=== PATIENT | male | born 1955 | race Caucasian/White ===

== ENCOUNTER 2022-10-28 14:37 | Observation (INO) | payer MEDICARE, SELFPAY ==
[2022-10-28] VITALS (7 sets, daily range): BP systolic 109–132; BP diastolic 60–72; PULSE 67–93; RESP 18–21; TEMP 36.2–36.6; O2SAT 97–100; BMI 34.1; BMI 33.9
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
--- NOTE | ~2022-10-28 | XR_ITS ---
EXAMINATION: XR chest 2V DATE: 10/28/2022 15:35 INDICATION: Transient alteration of awareness TECHNIQUE: Frontal and lateral views of the chest are obtained COMPARISON: None available FINDINGS: There are minimal airspace opacities of the lung bases. No pleural effusion or pneumothorax . The cardiomediastinal silhouette is normal. There is mild thoracic spondylosis. IMPRESSION: 1. No acute cardiopulmonary abnormality. Reviewed, dictated and finalized at location [facility]. ERCRAFT NURSE
--- NOTE | 2022-10-28 14:43 | ECG_ITS ---
Measurements Intervals Scribner Rate: 96 P: 33 VT: 165 QRS: 13 QRSD: 87 T: 75 QT: 361 QTc: 458 Interpretive Statements SINUS RHYTHM MINIMAL Q WAVES- HIGH LATERAL LEADS ANTEROSEPTAL INFARCT, AGE INDETERMINATE BASELINE ARTIFACT- I, II, AVR, AVL, AVF ABNORMAL ECG NO PREVIOUS ECG AVAILABLE FOR COMPARISON Electronically Signed On 10-28-2022 14:50:57 ORDNANCE ENGINEERING TECHNICIAN by Andrey Luis D.O.
[2022-10-28 14:55] LABS: Glucose Point of Care 50 mg/dl (65-105)
[2022-10-28] MEDS: DEXTROSE 50% 25 GM/50 ML SYRINGE IV PUSH (15:00)
[2022-10-28 15:23] LABS: Glucose Point of Care 142 mg/dl (65-105)
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
[2022-10-28 15:36] LABS: Basophils Percent Auto 0.5 % (0.2-1.2); Eosinophils Absolute Auto 0.3 K/mm3 (0-0.3); Eosinophils Percent Auto 2.9 % (0-4.4); Hematocrit 41.7 % (42.0-52.0); Hemoglobin 13.4 g/dL (14.0-18.0); Immature Granulocyte Absolute 0.03 K/mm3 (0.00-0.031); Immature Granulocyte Percent A 0.3 % (0-0.5); Lymphocytes Absolute Auto 3.39 K/mm3 (0.9-3.2); Lymphocytes Percent Auto 39.1 % (18.3-44.2); Mean Corpuscular HGB Conc 32.1 g/dl (32-36); Mean Corpuscular Hemoglobin 29.3 pg (26-34); Mean Platelet Volume 12.3 fl (7.4-10.4); Monocytes Absolute Auto 0.9 K/mm3 (0.1-0.6); Monocytes Percent Auto 9.8 % (2.6-8.5); Neutrophils Absolute Auto 4.1 K/mm3 (1.3-6.7); Neutrophils Percent Auto 47.4 % (45.5-73.1); Platelet Count Result 241 k/mm3 (150-375); Red Blood Count 4.58 M/mm3 (4.6-6.20); Red Cell Distribution Width 14.9 % (11.5-14.5); White Blood Count 8.7 K/mm3 (4.5-10.0)
[2022-10-28 15:55] LABS: Glucose Point of Care 95 mg/dl (65-105)
[2022-10-28 15:55] LABS: Magnesium 1.8 mg/dL (1.6-2.3)
[2022-10-28 15:57] LABS: Bacteria Urine Trace /hpf; RBC Urine 0-2 /hpf (0-2); WBC Urine 0-3 /hpf
[2022-10-28 16:02] LABS: Troponin I 0.021 ng/mL (0.000-0.034)
[2022-10-28 16:02] LABS: Appearance Urine Clear (Clear); Bilirubin Urine Negative (Negative); Blood Urine Negative (Negative); Color Urine Yellow (Yellow); Glucose Urine UA Trace mg/dL (Negative); Ketones Urine Negative (Negative); Leukocyte Esterase Ur Negative LEU/UL (Negative); Nitrate Urine Negative (Negative); Protein Urine 2+ mg/dL (Negative); Specific Grav Ur >= 1.030 (1.001-1.035); pH Urine 5.5 (5.0-9.0)
[2022-10-28 16:03] LABS: Add Urine Microscopic? YES
[2022-10-28 16:07] LABS: Prothrombin Time 13.2 Seconds (11.1-14.7)
[2022-10-28 16:08] LABS: Partial Thromboplastin Time 25.6 SECONDS (22.3-36.8)
[2022-10-28 16:11] LABS: Alanine Aminotransferase 19 U/L (6-50); Albumin Level 4.2 g/dL (3.5-5.1); Alkaline Phosphatase 29 U/L (38-126); Anion Gap 12 mmol/L (8-16); Aspartate Amino Transferase 20 U/L (17-59); Bilirubin,Total 0.5 mg/dL (0.2-1.3); Blood Urea Nitrogen 14 mg/dL (9-20); Calcium 8.4 mg/dL (8.4-10.2); Carbon Dioxide 21 mmol/L (22-30); Chloride 106 mmol/L (98-107); Estimated Glomerular Filt Rate > 60; Glucose 44 mg/dL (65-110); Potassium 3.7 mmol/L (3.4-5.0); Sodium 139 mmol/L (137-145)
[2022-10-28 16:29] LABS: Influenza A QL RT-PCR Negative (Negative); Influenza B QL RT-PCR Negative (Negative); SARS-CoV-2 RNA PCR Negative
[2022-10-28 16:35] LABS: Amphetamine Screen Urine Negative (Negative); Barbiturate Screen Urine Negative (Negative); Benzodiazepines Screen Urine Negative (Negative); Cannabinoid Screen Urine Negative (Negative); Cocaine Screen Urine Negative (Negative); Methadone Screen Urine Negative (Negative); Opiate Screen Urine Negative (Negative); Phencyclidine Screen Urine Negative (Negative)
[2022-10-28 16:41] LABS: Glucose Point of Care 94 mg/dl (65-105)
[2022-10-28] MEDS: DEXTROSE 5%/0.45% SOD CHL 1,000 ML 100 ML IV CONT (17:21)
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
--- NOTE | 2022-10-28 19:10 | PC.NURSE ---
Assumed pt care from Batsheva Herrera RN
[2022-10-28 20:24] LABS: Glucose Point of Care 188 mg/dl (65-105)
[2022-10-28 20:46] LABS: Glucose Point of Care 205 mg/dl (65-105)
--- NOTE | 2022-10-28 20:48 | ADMGEN ---
This patient, Yassine Ji, was admitted to IMU Room 205-2033. Patient/family oriented to hospital policies and general routines including ID bracelet, bed and alarms, visiting hours, pain management, procedures, bathroom and other care routines, personal items, smoking policy, room service/diet, and visiting hours. Information on how to activate the Rapid Response Team has been discussed. Patient/Family are encouraged to report perceived risks to care and to ask questions if they do not understand what they are told or what they should do.
[2022-10-28] MEDS: SACUBITRIL/VALSARTAN 24-26 MG TABLET 1 TAB PO (22:38)
[2022-10-28 23:18] LABS: Glucose Point of Care 153 mg/dl (65-105)
[2022-10-29] VITALS (10 sets, daily range): BP systolic 106; BP diastolic 60–66; PULSE 60–69; RESP 20–24; TEMP 36.2–36.7; O2SAT 96–98
--- NOTE | 2022-10-29 | ECHO_ITS ---
Patient Info Name: Yassine Ji Age: 67 years : 1955 Gender: Male Ht: 70 in Wt: 236 lbs BSA: 2.34 m2 HR: 62 bpm BP: 106 / 60 mmHg Heart Rhythm: Sinus Rhythm Technical Quality: Good Exam Date: 10/29/2022 6:52 AM Exam Location: [facility] Patient Status: Inpatient Admit Date: 10/28/2022 Staff Ordering Physician: Mariela Galindo NP Psychiatric Registered Nurse: Judi Mayer RDCS Attending Provider: Desmond Vincent MD Referring Physician: Josie JORDAN; Exam Type: CA echo doppler color flow Study Info Indications I51.7 - Cardiomegaly Complete two-dimensional, color flow and Doppler transthoracic echocardiogram is performed. Summary 1. Complete two-dimensional, color flow and Doppler transthoracic echocardiogram is performed. 2. Left ventricular chamber dimension is normal. 3. Left ventricular systolic function is normal, estimated at 50-55%. 4. There is mildly increased left ventricular wall thickness. 5. The left ventricular diastolic function is grade I diastolic dysfunction. 6. Right ventricular systolic function is normal. 7. The mitral valve has thickened leaflets. 8. There is mild mitral valve regurgitation. Left Ventricle Left ventricular chamber dimension is normal. Left ventricular systolic function is normal, estimated at 50-55%. There is mildly increased left ventricular wall thickness. The left ventricular diastolic function is grade I diastolic dysfunction. Right Ventricle Right ventricular chamber dimension is normal. Right ventricular systolic function is normal. Left Atria Left atrial chamber dimension is normal. Right Atria Right atrial chamber dimension is normal. Atrial Septum Intact interatrial septum visualized by color flow imaging. Aortic Valve The aortic valve is not well visualized. There is no aortic valve stenosis. There is no aortic valve regurgitation. Pulmonic Valve The pulmonic valve is not well visualized. Mitral Valve The mitral valve has thickened leaflets. There is no mitral valve stenosis. There is mild mitral valve regurgitation. Tricuspid Valve The tricuspid valve leaflets are normal. There is trace tricuspid valve regurgitation. Pericardium/Pleural The pericardium appears epicardial fat pad. There is no pericardial effusion. Inferior Vena Cava Normal inferior vena cava with <50% collapse upon inspiration consistent with elevated right atrial pressure, 8 mmHg. Aorta The aortic root size at the sinus of Valsalva is normal. Left Ventricular Outflow Tract Name Value Normal LVOT 2D LVOT Diameter 2.1 cm LVOT Doppler LVOT Peak Gradient 4 mmHg LVOT Mean Gradient 3 mmHg LVOT VTI 25 cm LVOT VTI/AV VTI Ratio 0.8 LVOT Stroke Volume 85 ml LVOT CO 5.6 l/min LVOT CI 2.4 l/min/m2 Pulmonic Valve Name
[2022-10-29] MEDS: DEXTROSE 5%/0.45% SOD CHL 1,000 ML 100 ML IV CONT (04:07)
[2022-10-29 05:18] LABS: Basophils Percent Auto 0.2 % (0.2-1.2); Eosinophils Absolute Auto 0.2 K/mm3 (0-0.3); Eosinophils Percent Auto 2.2 % (0-4.4); Hematocrit 38.2 % (42.0-52.0); Hemoglobin 12.2 g/dL (14.0-18.0); Immature Granulocyte Absolute 0.02 K/mm3 (0.00-0.031); Immature Granulocyte Percent A 0.2 % (0-0.5); Lymphocytes Absolute Auto 2.88 K/mm3 (0.9-3.2); Lymphocytes Percent Auto 32.2 % (18.3-44.2); Mean Corpuscular HGB Conc 31.9 g/dl (32-36); Mean Platelet Volume 12.4 fl (7.4-10.4); Monocytes Absolute Auto 0.7 K/mm3 (0.1-0.6); Monocytes Percent Auto 7.7 % (2.6-8.5); Neutrophils Absolute Auto 5.1 K/mm3 (1.3-6.7); Neutrophils Percent Auto 57.5 % (45.5-73.1); Platelet Count Result 195 k/mm3 (150-375); Red Cell Distribution Width 15.1 % (11.5-14.5)
[2022-10-29 05:35] LABS: Anion Gap 5 mmol/L (8-16); Blood Urea Nitrogen 12 mg/dL (9-20); Carbon Dioxide 26 mmol/L (22-30); Chloride 107 mmol/L (98-107); Estimated CRCL calculation 94 ml/min; Estimated Glomerular Filt Rate > 60; Glucose 115 mg/dL (65-110); Potassium 3.9 mmol/L (3.4-5.0); Sodium 138 mmol/L (137-145)
[2022-10-29 06:17] LABS: Hemoglobin A1C 6.3 % (<5.7)
[2022-10-29 07:55] LABS: Glucose Point of Care 151 mg/dl (65-105)
[2022-10-29] MEDS: METOPROLOL SUCCINATE EXT REL 12.5 MG TABCR PO (08:43)
[2022-10-29] MEDS: ATORVASTATIN 40 MG TABLET 80 MG PO (08:43)
[2022-10-29] MEDS: CLOPIDOGREL BISULFATE 75 MG TABLET PO (08:43)
[2022-10-29] MEDS: SACUBITRIL/VALSARTAN 24-26 MG TABLET 1 TAB PO (08:44)
[2022-10-29] MEDS: ASPIRIN 81 MG ENTERIC TABLET PO (08:44)
[2022-10-29 11:43] LABS: Glucose Point of Care 128 mg/dl (65-105)
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
[2022-10-29 17:04] LABS: Glucose Point of Care 151 mg/dl (65-105)
== END 2022-10-29 17:25 | disposition home or self-care (01) ==
LOC: ANHED 17:38 → ANHIMU 21:21
PROVIDERS: Nurse Practitioner; Admitting Provider Internal Medicine; Emergency Provider Preventive Medicine Aerospace Medicine; Visit Provider Chiropractor
DX: E11.649 Type 2 diabetes mellitus with hypoglycemia without coma (principal); R55 Syncope and collapse; V69.9XXA Occupant (driver) (passenger) of heavy transport vehicle injured in unspecified traffic accident, initial encounter; Y92.410 Unspecified street and highway as the place of occurrence of the external cause; Y99.0 Civilian activity done for income or pay; Y93.89 Activity, other specified; I25.10 Atherosclerotic heart disease of native coronary artery without angina pectoris; E78.5 Hyperlipidemia, unspecified; I11.9 Hypertensive heart disease without heart failure; I34.0 Nonrheumatic mitral (valve) insufficiency; R94.31 Abnormal electrocardiogram [ECG] [EKG]; R53.1 Weakness; D64.9 Anemia, unspecified; Z20.822 Contact with and (suspected) exposure to COVID-19; M47.812 Spondylosis without myelopathy or radiculopathy, cervical region; M43.22 Fusion of spine, cervical region; R42 Dizziness and giddiness; Z95.1 Presence of aortocoronary bypass graft; I67.2 Cerebral atherosclerosis; R90.82 White matter disease, unspecified; Z79.82 Long term (current) use of aspirin; Z79.84 Long term (current) use of oral hypoglycemic drugs; Z79.02 Long term (current) use of antithrombotics/antiplatelets; Z79.899 Other long term (current) drug therapy
CPT/HCPCS: 36415; 70450; 71046; 72125; 80048; 80053; 80307; 81001; 82948; 83036; 83735; 84484; 85025; 85610; 85730; 87636; 93005; 93306; 96361; 96374; 99285; A9270; G0378